=== PATIENT | male | born 1980 | race Caucasian/White ===

== ENCOUNTER 2020-01-05 00:12 | Day surgery (SDC) | payer OTHER, SELFPAY ==
[2019-12-26 15:41] VITALS: BMI 35.4
--- NOTE | 2020-01-04 20:39 | PM.SD ---
Same Day Admit/Disch: HPI History of Present Illness Chief complaint: Umbilical Hernia Narrative: Timoteo Meza is a 39 year old male who has had an umbilical hernia for years. It has gotten larger and is more bothersome, painful. He is taken to surgery now for repair. 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 Day Admit/Disch: Med Pre-admit Medications Home Medications Medication Instructions Recorded Confirmed Type famotidine [Pepcid] 40 mg PO HS 12/26/19 01/05/20 History pantoprazole 40 mg PO DAILY 12/26/19 01/05/20 History hydrocodone-acetaminophen 1 - 2 tablet PO Q6H PRN #10 tablet 01/05/20 Rx ketorolac 10 mg PO Q6H 4 Days #16 tablet 01/05/20 Rx Exam Const: General: comfortable, no acute distress, alert and awake HENMT: Head: normocephalic and atraumatic Mouth: Yes Normal oral and palatal mucosa present Eyes: Conjunctivae: conjunctivae normal Pupils: Equal, round and reactive pupils present EOM: EOMs intact bilaterally Neck: Neck: normal visual inspection, no lymphadenopathy and nontender Resp: Effort & Inspection: normal respiratory effort Auscultation: clear to auscultation bilaterally Cardio: Rate: regular rate Rhythm: regular rhythm Heart sounds: no gallops, no murmurs and no rubs GI: Inspection: non-distended and visible herniation (umbilical hernia) GI Palp: Yes Soft to palpation, No Tenderness to palpation present (GI), No Hepatomegaly present, No Splenomegaly present and Yes Hernia present (umbilical hernia, did not try to reduce) Auscultation: normal bowel sounds Skin: Lesions: no lesions Rashes: no rashes Neuro: General: no focal motor deficits and CN's II-XI intact bilaterally Cranial nerves: Yes Equal, round and reactive pupils present, Yes Bilaterally intact EOM present, Yes facial symmetry and Yes Midline tongue present Speech: normal speech Motor exam (neuro): 5/5 motor strength present throughout and Motor abnormalities not present Extrem: General: no clubbing, cyanosis or edema and edema Psych: Affect: normal affect Thought process: Normal thought process present Insight: Good insight present (Psych) DS: Summary Time Spent with Patient Time attestation: Total time spent providing and/or coordinating discharge services: DS: Diagnosis Discharge Diagnosis (1) Umbilical hernia without obstruction and without gangrene: Code(s): K42.9 - Umbilical hernia without obstruction or gangrene Status: Chronic Assessment and Plan: Symptomatic reducible, umbilical hernia. The procedure, the risks, the usual recovery have been discussed. All questions were answered. The use of mesh has been discussed. He agrees to go ahead. Discharge Plan Discharge Patient Disposition: Home, Self-Care Discharge Instructions: 1. May shower the day after surgery over incision. 2. Call office for: -Wound increasingly painful or bleeding -Vomiting -Fever of greater than 101 degrees 3. Expect some blood on dressing or on skin. 4. If no bowel movement for three days, take 1 oz. (30 ml) Milk of Magnesia; if no results, take Fleets enema. 5. No heavy lifting > 15-20 pounds for 2 weeks. 6. No driving for 3 days or while taking narcotic pain medications. 7. Up walking 10-30 minutes three times per day. 8. Resume pre
[2020-01-05] VITALS (7 sets, daily range): BP systolic 97–140; BP diastolic 68–94; PULSE 77–92; RESP 9–20; TEMP 30–36.4; O2SAT 96–99
[2020-01-05] MEDS: LACTATED RINGERS 1,000 ML 30 ML IV CONT ×2 (09:05→11:53)
--- NOTE | 2020-01-05 09:40 | WPDANESEPPF ---
Anes - Initial Pre Proc Eval Procedure: Operation Date: 01/05/20 10:30 Proposed Procedures p Umbilical Hernia Repair with Mesh - Jose Luis Gray MD Date/Time: 01/05/20 09:40 Surgeon: Jose Luis Gray MD Pre Op Diagnosis: Umbilical Hernia Patient Data Age: 39 Gender: M Height: 5 ft 7 in Weight: 102.5 kg Last Vital Signs Temp 36.4 C L 01/05/20 09:38 Pulse 87 01/05/20 09:38 Resp 20 01/05/20 09:38 BP 140/94 H 01/05/20 09:38 Pulse Ox 99 01/05/20 09:38 Allergies Allergy/AdvReac Type Severity Reaction Status Date / Time esomeprazole Allergy Severe Hives Verified 01/05/20 09:35 omeprazole [From Prilosec] Allergy Severe Hives Verified 01/05/20 09:35 Home Medications Medication Instructions Recorded Confirmed Type famotidine [Pepcid] 40 mg PO HS 12/26/19 01/05/20 History pantoprazole 40 mg PO DAILY 12/26/19 01/05/20 History Patient hx anesthesia problems: none Family hx anesthesia problems: none [facility] Past Medical History Medical History GERD (gastroesophageal reflux disease) Family History Family History Mother Peptic ulcer disease Unknown Diabetes mellitus Lung cancer Social History Social History Smoking packs per day: 0.50 Smoking cigarettes per day: 10.0 Years smoked: 10 Smoking pack-years: 5.00 Smoking status: Former smoker Alcohol intake: current 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 Questions were solicited and answers provided to the satisfaction of the patient/family/POA.
--- NOTE | 2020-01-05 10:45 | WPDHPUPDATE1 ---
History and Physical Update Update Date/Time: 01/05/20 10:45 History and Physical has been reviewed, including an updated exam of the patient. There are NO changes in the patient's condition. Risks, benefits, and alternatives have been discussed and questions answered. Patient agrees to proceed with procedure.
[2020-01-05] MEDS: ceFAZolin 2 GM/D5W 50 ML 2 GM/50 ML BAG IVPB (10:49)
[2020-01-05] MEDS: IBUPROFEN IV 800 MG/200 ML 800 MG/200 ML BAG 400 MG IVPB (11:00)
--- NOTE | 2020-01-05 12:04 | PM.PROC ---
Procedure Note - Detailed Date of procedure: 01/05/20 Pre-op diagnosis: Umbilical Hernia Umbilical hernia Post-op diagnosis: same Procedure performed: Umbilical hernia repair with 6.6 cm Parietex underlay mesh Description of procedure: Patient was taken to the operating room and IV sedation was administered. Prep and drape was carried out. The proposed incision along the upper margin of the umbilicus was marked on the skin. Local anesthetic was infiltrated into the skin and the deeper subcutaneous tissues. Incision was made and dissection was carried down through the skin and to the hernia sac. The sac was then dissected free from the umbilical skin and the surrounding subcutaneous tissues. It was dissected down to its neck. Additional local anesthetic was infiltrated into the neck and the fascia surrounding the neck of the hernia sac. The sac was then amputated at its neck. The subcutaneous was undermined around the hernia defect. Additional local was infiltrated around the fascia. I placed a finger inside the hernia defect and checked for any abdominal wall adhesions in the area. None were found. No other hernias were noted. A 6.6 cm Parietex [place] was chosen. It was folded and placed in the defect. Once it symmetrically covered the defect, I placed cranial and caudal transfascial sutures of 0 Ethibond. These sutures were placed in such a fashion that, when tied, they would advance the edges of the hernia defect towards 1 another. These sutures were tied and had the desired effect. I then closed the hernia defect with elxiqo-[id number] mattress sutures of 0 Ethibond. The repair looked quite satisfactory. I then infiltrated additional local all around the areas of the repair. The umbilical skin was tacked to the fascia with 3 0 Vicryl suture. The subcutaneous was closed with 3 0 Vicryl. Subcuticular interrupted 4 O Vicryl skin stitches were placed. The skin was then closed with running 4 0 Monocryl subcuticular suture. Wound was dressed with Exofin surgical adhesive. The patient was awakened and taken to recovery in good condition. Counts were correct x2. Implants: 6.6 cm Parietex hernia mesh Anesthesia: MAC and local (0.5% Marcaine with Exparel) Surgeon: Jose Luis Gray MD Lease Administration Analyst: Hali NICHOLAS Estimated blood loss (mL): 5 Drains: No Packing: No Pathology: none sent Complications: None Condition: stable Disposition: PACU Findings: 18 millimeter hernia defect
== END 2020-01-05 13:46 | disposition home or self-care (01) ==
PROVIDERS: PCP Family Medicine; Visit Provider Surgery
PROC: (CPT 49585; principal; 2020-01-05 10:30)
DX: K42.9 Umbilical hernia without obstruction or gangrene (principal); K21.9 Gastro-esophageal reflux disease without esophagitis; Z87.891 Personal history of nicotine dependence; E66.9 Obesity, unspecified; Z68.35 Body mass index [BMI] 35.0-35.9, adult
CPT/HCPCS: 49585; C1781; C9290; J0690; J1100; J1741; J2250; J2405; J2704; J3010; J7120

== ENCOUNTER 2020-07-18 18:38 | Outpatient (CLI) | payer OTHER, SELFPAY ==
--- NOTE | ~2020-07-18 | XR_ITS ---
XR thoracic spine 3V DATE: 07/18/2020 19:05 INDICATION: Right rib pain for over a year TECHNIQUE: AP, lateral, swimmer views COMPARISON: None FINDINGS: The lower thoracic vertebra are excluded from the lateral view. No fracture or dislocation or bone destruction is evident. The thoracic pedicles are intact. No bill bing soft tissue thickening. IMPRESSION: Incomplete examination; lower thoracic vertebrae are excluded from the lateral view; othe rwise negative (Dr. Sharpe notified the Instrument Designer by [employer] on 07/18/2020 at 2045 hours of the need for this patient to return for additional lateral view, at which time an addendum dictation can be made to co mplete the examination.) Reviewed, dictated and finalized at location A. IMPRESSION: Incomplete examination; lower thoracic vertebrae are excluded from the lateral view; otherwise negative (Dr. Sharpe notified the Instrument Designer by [employer] on 07/18/2020 at 2045 hour s of the need for this patient to return for additional lateral view, at which time an addendum dictation can be made to complete the examination.)
--- NOTE | ~2020-07-18 | XR_ITS ---
XR_[id number]_CR DATE: 07/18/2020 19:05 INDICATION: Right rib pain for over a year. No known injury. TECHNIQUE: PA chest. 3 views of the right ribs. COMPARISON: None FINDINGS: Normal heart size. No hilar or mediastinal enlargement. No pulmonary infiltrate or consolid ation, pleural effusion or pulmonary vascular congestion or pneumothorax. No right rib fracture or bone destruction. IMPRESSION: Negative Reviewed, dictated and finalized at Location A. Reviewed, dictated and finalized at location A. IMPRESSION: Negative
== END 2020-07-18 18:39 | disposition home or self-care (01) ==
LOC: CHSIMG 18:40
PROVIDERS: PCP Family Medicine; Visit Provider Family Medicine
DX: R07.89 Other chest pain (principal)
CPT/HCPCS: 71101; 72072

== ENCOUNTER 2020-07-28 08:59 | Outpatient (CLI) | payer OTHER, SELFPAY ==
--- NOTE | ~2020-07-28 | MR_ITS ---
EXAMINATION: MR thoracic spine wo con DATE: 07/28/2020 09:46 INDICATION: Chest pain. Rib pain. TECHNIQUE: Magnetic resonance imaging (MRI) of the thoracic spine was performed without intravenous c ontrast. Sagittal localizer T1-weighted FSE of the cervical spine was obtained. Thoracic spine sequen aki included sagittal T2-weighted FSE, sagittal T1-weighted FSE, sagittal T2-weighted FS FSE, and axi al T2-weighted FSE. COMPARISON: Thoracic spine radiographs 07/18/2020 FINDINGS: There is mild kyphosis of cervical spine. Vertebral body heights are normal. There is a hem angioma in L1 vertebral body. Intervertebral disc heights are normal. At T5-T6, there is a left centr al extrusion with mild central canal stenosis. At the T7-T8, there is a central extrusion with mild c entral canal stenosis. There is multilevel mild facet joint osteoarthritis. There is no neural forami nal stenosis. The spinal cord signal intensity is normal. IMPRESSION: 1. Mild thoracic spondylosis. Reviewed, dictated and finalized at location A.
== END 2020-07-28 09:00 | disposition home or self-care (01) ==
LOC: CHSIMG 09:01
PROVIDERS: PCP Family Medicine; Visit Provider Family Medicine
DX: R07.9 Chest pain, unspecified (principal); R07.81 Pleurodynia
CPT/HCPCS: 72146

== ENCOUNTER 2020-09-21 08:04 | Outpatient (CLI) | payer OTHER, SELFPAY ==
--- NOTE | ~2020-09-21 | US_ITS ---
EXAMINATION: US abdomen complete DATE: 09/21/2020 08:36 INDICATION: Right upper quadrant pain TECHNIQUE: Multiple grayscale and Doppler ultrasound images of the abdomen were obtained. COMPARISON: None available FINDINGS: The head and body of the pancreas are normal. The pancreatic tail is obscured by bowel gas. The liver demonstrates increased echogenicity, heterogenous echotexture, and decreased through trans mission. No surface nodularity. Normal hepatopetal flow in the main portal vein. The gallbladder is n ormal with no abnormal wall thickening, pericholecystic fluid or stones. The normal common bile duct measures 5 mm. There was no sonographic Barnhart sign. The visualized portions of the aorta and inferio r vena cava are normal. The right kidney measures 11.6 x 5.7 x 5.9 cm. The left kidney measures 11.0 x 5.3 x 5.8 cm. The kidn eys demonstrate normal parenchymal echogenicity. There is no hydronephrosis. The spleen is normal in appearance and measures 13 cm. IMPRESSION: 1. Diffuse hepatic steatosis. Reviewed, dictated and finalized at location A. L CUTTER
[2020-09-21 08:17] LABS: Basophils Absolute Auto 0.07 K/mm3 (0.00-0.10); Basophils Percent Auto 0.9 % (0.0-1.0); Eosinophils Percent Auto 1.3 % (1.0-6.0); Hematocrit 45.2 % (40.0-54.0); Hemoglobin 14.8 g/dL (14.0-18.0); Immature Granulocyte Absolute 0.15 K/mm3 (0.00-0.00); Immature Granulocyte Percent A 1.9 % (0.0-0.0); Lymphocytes Absolute Auto 1.92 K/mm3 (1.10-4.50); Lymphocytes Percent Auto 24.6 % (18.0-42.0); Mean Corpuscular HGB Conc 32.7 g/dL (32.0-36.0); Mean Corpuscular Hemoglobin 28.9 pg (27.0-31.0); Mean Corpuscular Volume 88.3 fL (78.0-102.0); Mean Platelet Volume 10.6 fl (8.7-11.0); Monocytes Absolute Auto 0.77 K/mm3 (0.10-0.90); Monocytes Percent Auto 9.9 % (2.0-11.0); Neutrophils Absolute Auto 4.8 K/mm3 (1.7-7.2); Neutrophils Percent Auto 61.4 % (50.0-70.0); Platelet Count Result 228 K/mm3 (150-420); Red Blood Count 5.12 M/mm3 (4.70-6.10); Red Cell Distribution Width 12.4 % (11.6-14.4); White Blood Count 7.8 K/mm3 (4.8-10.8)
[2020-09-21 08:18] LABS: Add Urine Microscopic? YES; Appearance Urine Clear (Clear); Bilirubin Urine Negative (Negative); Blood Urine Negative (Negative); Color Urine Yellow (Yellow); Glucose Urine UA Negative (Negative); Ketones Urine Negative (Negative); Leukocyte Esterase Ur Negative (Negative); Nitrate Urine Negative (Negative); Protein Urine Trace (Negative); Specific Grav Ur >= 1.030 (1.010-1.020); Urobilinogen Urine 0.2 mg/dL (0.2-1.0)
[2020-09-21 08:37] LABS: Bacteria Urine None seen /hpf; RBC Urine 0-2 /hpf (0-2); WBC Urine 0-3 /hpf (0-3)
[2020-09-21 09:47] LABS: Alanine Aminotransferase 84 U/L (16-63); Albumin Level 4.2 g/dL (3.4-5.0); Alkaline Phosphatase 73 U/L (46-116); Amylase 20 U/L (25-115); Anion Gap 9 mmol/L (8-16); Aspartate Amino Transferase 31 U/L (15-37); Bilirubin,Total 0.5 mg/dL (0.00-1.00); Blood Urea Nitrogen 17 mg/dL (7-18); Calcium 9.1 mg/dL (8.5-10.1); Carbon Dioxide 28 mmol/L (21-32); Chloride 102 mmol/L (98-108); Estimated Glomerular Filt Rate 60; Glucose 159 mg/dL (70-99); Lipase 189 U/L (73-393); Osmolality Calculated 292 mOsm/kg (285-295); Potassium 4.3 mmol/L (3.5-5.1); Sodium 139 mmol/L (136-145); Total Protein 7.3 g/dL (6.4-8.2)
== END 2020-09-21 08:05 | disposition home or self-care (01) ==
LOC: CHSLAB 08:06
PROVIDERS: PCP Family Medicine; Visit Provider Family Medicine
DX: R10.11 Right upper quadrant pain (principal)
CPT/HCPCS: 36415; 76700; 80053; 81001; 82150; 83690; 85025

== ENCOUNTER 2020-10-22 08:13 | Outpatient (CLI) | payer OTHER, SELFPAY ==
--- NOTE | ~2020-10-22 | NM_ITS ---
EXAMINATION: NM hepatobiliary w pharm DATE: 10/22/2020 10:42 INDICATION: Biliary colic. COMPARISON: Ultrasound 09/21/2020 TECHNIQUE: 5.2 mCi Tc-99m mebrofenin (Choletec) was administered intravenously. Scintigraphic images of the abdomen were obtained for one hour. Then, 2.15 mcg sincalide (Kinevac) IV was administered, a nd imaging was continued for 30 minutes. FINDINGS: There is normal clearance of radiotracer from the blood pool. There is homogeneous tracer u ptake by the liver. Activity progresses to the bowel and gallbladder. Gallbladder ejection fraction (GBEF) was 14%. Note that most patients with gallbladder dysfunction have GBEF < 35%, which overlaps with the broad normal range of 10-90%. IMPRESSION: 1. Gallbladder ejection fraction in the lower range of normal. Note that this value overlaps with th e range of values that may be seen with gallbladder dysfunction and/or chronic cholecystitis if there is appropriate clinical correlation. Reviewed, dictated and finalized at location B. ING DEPARTMENT SUPERVISOR IMPRESSION: 1. Gallbladder ejection fraction in the lower range of normal. Note that this value overlaps with the range of values that may be seen with gallbladder dysfu nction and/or chronic cholecystitis if there is appropriate clinical correlatio [place]
== END 2020-10-22 08:14 | disposition home or self-care (01) ==
LOC: CHSIMG 08:14
PROVIDERS: PCP Family Medicine; Visit Provider Family Medicine
DX: K80.50 Calculus of bile duct without cholangitis or cholecystitis without obstruction (principal)
CPT/HCPCS: 78227; A9537; J2805

== ENCOUNTER 2022-06-05 11:40 | Outpatient (CLI) | payer OTHER, SELFPAY ==
[2022-06-05 12:41] LABS: SARS-CoV-2 RNA PCR Positive (Negative)
== END 2022-06-05 11:41 | disposition home or self-care (01) ==
LOC: CHSLAB 11:42
PROVIDERS: PCP Family Medicine; Visit Provider Family Medicine
DX: U07.1 COVID-19 (principal); J00 Acute nasopharyngitis [common cold]
CPT/HCPCS: C9803; U0003; U0005

== ENCOUNTER 2022-06-09 12:28 | Outpatient (CLI) | payer OTHER, SELFPAY ==
[2022-06-09 13:07] LABS: SARS-CoV-2 Ag Negative (Negative)
== END 2022-06-09 12:29 | disposition home or self-care (01) ==
LOC: CHSLAB 12:31
PROVIDERS: PCP Family Medicine; Visit Provider Family Medicine
DX: Z20.822 Contact with and (suspected) exposure to COVID-19 (principal)
CPT/HCPCS: 87426; C9803

== ENCOUNTER 2022-12-22 11:22 | Outpatient (CLI) | payer OTHER, SELFPAY ==
--- NOTE | ~2022-12-22 | XR_ITS ---
Clinical Indication: Dyspnea PA and lateral views of the chest: Comparison: 10/24/2019 Findings: The lungs are clear, without evidence of focal consolidation or pleural effusion. Cardiome diastinal silhouette is within normal limits. Bones and soft tissues are unremarkable. Impression: Normal chest. Reviewed, dictated and finalized at [facility]. BRUSHER Impression: Normal chest.
== END 2022-12-22 11:23 | disposition home or self-care (01) ==
LOC: CHSIMG 11:23
PROVIDERS: PCP Family Medicine; Visit Provider Family Medicine
DX: R06.00 Dyspnea, unspecified (principal)
CPT/HCPCS: 71046

== ENCOUNTER 2023-08-09 14:24 | Emergency (ER) | payer OTHER, SELFPAY ==
--- NOTE | ~2023-08-09 | CT_ITS ---
EXAMINATION: CT abdomen pelvis wo con DATE: 08/09/2023 15:32 INDICATION: left lower quadrant pain V/D TECHNIQUE: Computed tomography (CT) of the abdomen and pelvis was performed without intravenous contr ast. Automated exposure control and iterative reconstruction technique were employed. The dose-length product was 1273.57 mGy-cm. COMPARISON: Hepatobiliary scan 10/22/2020; ultrasound abdomen 09/21/2020. FINDINGS: Lower thorax: Unremarkable Liver: Enlarged, mild diffuse fatty infiltration. Biliary/Gallbladder: Gallbladder is absent. No bile duct dilation. Pancreas: No mass or duct dilation. Spleen: Normal. Adrenals:No mass. Kidneys: Punctate bilateral nonobstructing calculi. No suspicious mass, obstructing stone, or hydrone phrosis. GI tract: Multiple loops of borderline dilated small bowel in the central abdomen. No large bowel dil ation. Normal appendix. Mesentery/Peritoneum: No ascites, mass, or free air. Prominent mesenteric lymph nodes with surroundin g fat halos and stranding. Retroperitoneum: No mass. Atherosclerotic abdominal aortic and/or arterial calcifications. Pelvis: Pelvic organs are within normal limits. Soft Tissues: Mild bilateral inguinal lymphadenopathy. Bones: No acute osseous finding. IMPRESSION: Hepatomegaly and steatosis. Mesenteric panniculitis. Multiple loops of borderline dilated small bowel may reflect a component of enteritis. Bilateral inguinal lymphadenopathy. Reviewed, dictated and finalized at location K. IMPRESSION: Hepatomegaly and steatosis. Mesenteric panniculitis. Multiple loops of borderline dilated small bowel may reflect a component of ent eritis. Bilateral inguinal lymphadenopathy.
[2023-08-09 14:25] VITALS: BP 147/93; PULSE 96; RESP 20; TEMP 37.1; O2SAT 99
--- NOTE | 2023-08-09 14:48 | ED.GENADULT ---
HPI - General Adult General Chief complaint: Abdominal Pain Stated complaint: abdominal pain Time Seen by Provider: 08/09/23 14:48 Source: patient and other ( Flory Mo) Mode of arrival: ambulatory Limitations: no limitations History of Present Illness HPI narrative: 43-year-old white male complains left lower and left upper quadrant Dull achy abdominal pain constant but waxes and wanes in severity that started while he was playing bingo at 11:00 a.m. today. Said the pain was an 8/10 threw up food twice without any blood. Was nauseated. Now his pain is a 4/10. He had a bowel movement nonbloody not black that did not help. Pain wax and wane in severity he broke out in a sweat so he came to the emergency department. He had felt a little lightheaded in the waiting room. His fiancee said he complained of bloating in his abdomen felt like his pants were tight. His gallbladder out in November of this year and has GERD on Protonix. He has had this kind of pain twice before lasting 3 or 4 days but never sought out medical care for this. He has had diarrhea 4-5 loose watery nonbloody stools for the last 24 hours for the last week. Past medical history as above he has had GERD on Protonix. but no heart lung kidney liver Diseasesdiabetes anemia thyroid disease stroke arthritis hypertension or any other medical conditions. Past surgical history cholecystectomy umbilical hernia repair review of systems : Denies any problems eating or drinking voiding or stool with exception of his diarrhea as above. Denies any lumps or bumps bleeding or bruising rash or itching cough fever. He has had a sore throat this morning but not now he has had a runny nose. Denies any problems walking talking seeing or hearing. Related Data Home Medications Medication Instructions Recorded Confirmed famotidine 20 mg tablet (Pepcid) 40 mg PO HS 12/26/19 02/07/20 pantoprazole 40 mg tablet,delayed 40 mg PO DAILY 12/26/19 02/07/20 release Allergies Allergy/AdvReac Type Severity Reaction Status Date / Time esomeprazole Allergy Severe Hives Verified 02/06/20 09:23 omeprazole [From Prilosec] Allergy Severe Hives Verified 02/06/20 09:23 Review of Systems Review of Systems: All systems reviewed & are unremarkable except as noted in HPI and below PMFSH Past Medical History Medical History (Updated 08/09/23 @ 17:39 by Torsten Rico MD) GERD (gastroesophageal reflux disease) Surgical History Surgical History Umbilical hernia without obstruction and without gangrene Family History Family History Mother Peptic ulcer disease Unknown Diabetes mellitus Lung cancer Social History Social History Smoking packs per day: 0.50 Smoking cigarettes per day: 10.0 Years smoked: 10 Smoking pack-years: 5.00 Smoking status: Former smoker Alcohol intake: current Living arrangements: with family Occupation/Education: occupation 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 Head normocephalic, atraumatic.? Eyes conjunctiva pink sclera nonicteric.? Extraocular movements are intact.? Ears externally normal.? Oropharynx is clear with moist mucous membranes without exudates.? Neck is supple nontender no lymphadenopathy.? Back is nontender.? Lungs are clear.? Heart is regular rate and rhythm without murmurs gallops or rubs.? Chest wall is nontender.? Abdomen is soft and with tenderness to the left lower quadrant with rebound referred to the left lower quadrant with a positive internal obturator sign and questionable psoas sign on the left. He has no hepatosplenomegaly or masses no CVA tenderness no abdominal bruits.? Extremities no cyanosis clubbing or edema.? Skin is warm and dry without
[2023-08-09] MEDS: SODIUM CHLORIDE 0.9% IV 1,000 ML 999 ML IV CONT (15:09)
[2023-08-09] MEDS: KETOROLAC 30 MG/ML VIAL (*BKC) IV PUSH (15:10)
[2023-08-09] MEDS: ONDANSETRON INJ 4 MG/2 ML VIAL IV PUSH (15:12)
[2023-08-09 15:20] LABS: Basophils Absolute Auto 0.07 K/mm3 (0.00-0.10); Basophils Percent Auto 0.5 % (0.0-1.0); Eosinophils Absolute Auto 0.03 K/mm3 (0.02-0.50); Eosinophils Percent Auto 0.2 % (1.0-6.0); Hematocrit 53.9 % (40.0-54.0); Hemoglobin 18.2 g/dL (14.0-18.0); Immature Granulocyte Absolute 0.12 K/mm3 (0.00-0.00); Immature Granulocyte Percent A 0.9 % (0.0-0.0); Lymphocytes Absolute Auto 0.83 K/mm3 (1.10-4.50); Lymphocytes Percent Auto 5.9 % (18.0-42.0); Mean Corpuscular HGB Conc 33.8 g/dL (32.0-36.0); Mean Corpuscular Hemoglobin 28.3 pg (27.0-31.0); Mean Corpuscular Volume 83.8 fL (78.0-102.0); Mean Platelet Volume 11.1 fl (8.7-11.0); Monocytes Absolute Auto 0.66 K/mm3 (0.10-0.90); Monocytes Percent Auto 4.7 % (2.0-11.0); Neutrophils Absolute Auto 12.3 K/mm3 (1.7-7.2); Neutrophils Percent Auto 87.8 % (50.0-70.0); Platelet Count Result 231 K/mm3 (150-420); Red Blood Count 6.43 M/mm3 (4.70-6.10); Red Cell Distribution Width 12.3 % (11.6-14.4)
[2023-08-09 15:22] LABS: Appearance Urine Clear (Clear); Bilirubin Urine Negative (Negative); Blood Urine Trace-Intact (Negative); Color Urine Light Yellow (Yellow); Glucose Urine UA 3+ (Negative); Ketones Urine Negative (Negative); Leukocyte Esterase Ur Negative LEU/UL (Negative); Nitrate Urine Negative (Negative); Protein Urine 2+ (Negative); Specific Grav Ur >= 1.030 (1.010-1.020); Urobilinogen Urine 0.2 mg/dL (0.2-1.0); pH Urine 5.5 (5.0-8.0)
[2023-08-09 15:25] LABS: Add Urine Microscopic? YES
[2023-08-09 15:28] LABS: Amorphous Sediment Urine Few; Mucus Urine Few /lpf; RBC Urine 0-2 /hpf (0-2); Squamous Epithelial Cell Urine Few /hpf (Few)
[2023-08-09 15:38] LABS: Lactic Acid Reflex 1.5 mmol/L (0.4-2.0)
[2023-08-09 15:48] LABS: Alanine Aminotransferase 28 U/L (16-63); Albumin Level 4.2 g/dL (3.4-5.0); Alkaline Phosphatase 66 U/L (46-116); Anion Gap 12 mmol/L (8-16); Aspartate Amino Transferase 10 U/L (15-37); Bilirubin,Total 0.7 mg/dL (0.00-1.00); Blood Urea Nitrogen 13 mg/dL (7-18); Calcium 9.8 mg/dL (8.5-10.1); Carbon Dioxide 27 mmol/L (21-32); Chloride 96 mmol/L (98-108); Estimated CRCL calculation 77 ml/min; Estimated Glomerular Filt Rate > 60; Glucose 285 mg/dL (70-99); Lipase 27 U/L (16-77); Osmolality Calculated 290 mOsm/kg (285-295); Sodium 135 mmol/L (136-145); Total Protein 7.6 g/dL (6.4-8.2)
[2023-08-09 17:18] LABS: Hemoglobin A1C 10.8 % (<5.7)
[2023-08-09 17:25] VITALS: BP 138/87; PULSE 94; RESP 20; O2SAT 98
== END 2023-08-09 17:47 | disposition home or self-care (01) ==
PROVIDERS: Emergency Provider Emergency Medicine; PCP Family Medicine
DX: E65 Localized adiposity (principal); K76.0 Fatty (change of) liver, not elsewhere classified; E11.9 Type 2 diabetes mellitus without complications; Z87.891 Personal history of nicotine dependence
CPT/HCPCS: 36415; 74176; 80053; 81001; 83036; 83605; 83690; 85025; 96361; 96374; 96375; 99284; J1885; J2405; J7030; J7512

== ENCOUNTER 2023-08-17 10:11 | Outpatient (CLI) | payer OTHER, SELFPAY ==
[2023-08-17 10:32] LABS: Basophils Absolute Auto 0.04 K/mm3 (0.00-0.10); Basophils Percent Auto 0.4 % (0.0-1.0); Eosinophils Absolute Auto 0.05 K/mm3 (0.02-0.50); Eosinophils Percent Auto 0.6 % (1.0-6.0); Hemoglobin 16.2 g/dL (14.0-18.0); Immature Granulocyte Absolute 0.05 K/mm3 (0.00-0.00); Immature Granulocyte Percent A 0.6 % (0.0-0.0); Lymphocytes Percent Auto 17.8 % (18.0-42.0); Mean Corpuscular HGB Conc 33.1 g/dL (32.0-36.0); Mean Corpuscular Hemoglobin 28.2 pg (27.0-31.0); Mean Corpuscular Volume 85.2 fL (78.0-102.0); Mean Platelet Volume 10.8 fl (8.7-11.0); Monocytes Absolute Auto 0.75 K/mm3 (0.10-0.90); Monocytes Percent Auto 8.3 % (2.0-11.0); Neutrophils Absolute Auto 6.5 K/mm3 (1.7-7.2); Neutrophils Percent Auto 72.3 % (50.0-70.0); Platelet Count Result 237 K/mm3 (150-420); Red Blood Count 5.75 M/mm3 (4.70-6.10); Red Cell Distribution Width 12.6 % (11.6-14.4)
[2023-08-24 23:02] LABS: Islet Cell Antibody Screen NEGATIVE (NEGATIVE)
== END 2023-08-17 10:12 | disposition home or self-care (01) ==
LOC: CHSLAB 10:14
PROVIDERS: PCP Family Medicine; Visit Provider Family Medicine
DX: D75.1 Secondary polycythemia (principal); E11.9 Type 2 diabetes mellitus without complications
CPT/HCPCS: 36415; 85025; 86341

== ENCOUNTER 2023-12-31 09:18 | Outpatient (CLI) | payer OTHER, SELFPAY ==
[2023-12-31 09:42] LABS: Basophils Absolute Auto 0.05 K/mm3 (0.00-0.10); Basophils Percent Auto 0.7 % (0.0-1.0); Eosinophils Absolute Auto 0.09 K/mm3 (0.02-0.50); Eosinophils Percent Auto 1.2 % (1.0-6.0); Hematocrit 50.8 % (40.0-54.0); Hemoglobin 16.6 g/dL (14.0-18.0); Immature Granulocyte Absolute 0.05 K/mm3 (0.00-0.00); Immature Granulocyte Percent A 0.7 % (0.0-0.0); Lymphocytes Absolute Auto 1.39 K/mm3 (1.10-4.50); Lymphocytes Percent Auto 19.1 % (18.0-42.0); Mean Corpuscular HGB Conc 32.7 g/dL (32.0-36.0); Mean Corpuscular Hemoglobin 26.8 pg (27.0-31.0); Mean Corpuscular Volume 81.9 fL (78.0-102.0); Mean Platelet Volume 10.4 fl (8.7-11.0); Monocytes Absolute Auto 0.67 K/mm3 (0.10-0.90); Monocytes Percent Auto 9.2 % (2.0-11.0); Neutrophils Percent Auto 69.1 % (50.0-70.0); Platelet Count Result 247 K/mm3 (150-420); Red Cell Distribution Width 14.9 % (11.6-14.4); White Blood Count 7.3 K/mm3 (4.8-10.8)
[2023-12-31 10:04] LABS: Hemoglobin A1C 5.5 % (<5.7)
[2023-12-31 10:21] LABS: Anion Gap 10 mmol/L (8-16); Blood Urea Nitrogen 20 mg/dL (7-18); Calcium 9.2 mg/dL (8.5-10.1); Carbon Dioxide 28 mmol/L (21-32); Chloride 101 mmol/L (98-108); Estimated Glomerular Filt Rate 59; Glucose 122 mg/dL (70-99); Osmolality Calculated 291 mOsm/kg (285-295); Potassium 4.7 mmol/L (3.5-5.1); Sodium 139 mmol/L (136-145)
== END 2023-12-31 09:19 | disposition home or self-care (01) ==
LOC: CHSLAB 09:20
PROVIDERS: PCP Family Medicine; Visit Provider Family Medicine
DX: E11.9 Type 2 diabetes mellitus without complications (principal)
CPT/HCPCS: 36415; 80048; 83036; 85025